=== PATIENT | male | born 1950 | race Caucasian/White ===

== ENCOUNTER 2018-03-01 14:51 | Emergency (ER) | payer MEDICARE ==
[~2018-03-01] VITALS: Ht 175.3 cm; Wt 80.3 kg
--- NOTE | 2018-03-01 14:59 | NUR ---
DAISHA at bedside speaking with pt.
[2018-03-01 15:35] LABS: BASOPHILS % (AUTO) 0.4 % (0.0-2.0); EOSINOPHILS # (AUTO) 0.1 K/uL (0.0-0.7); EOSINOPHILS % (AUTO) 1.4 % (0.0-7.0); HEMATOCRIT 44.1 % (36.7-47.1); HEMOGLOBIN 15.2 g/dL (12.5-16.3); LYMPHOCYTES # (AUTO) 1.5 K/uL (20.0-40.0); LYMPHOCYTES % (AUTO) 19.4 % (20.5-51.5); MEAN CORPUSCULAR HEMOGLOBIN 29.9 uug (23.8-33.4); MEAN CORPUSCULAR HGB CONC 35 g/dL (32.5-36.3); MEAN CORPUSCULAR VOLUME 86.8 fL (73.0-96.2); MONOCYTES # (AUTO) 0.6 K/uL (2.0-10.0); MONOCYTES % (AUTO) 8.3 % (0.0-11.0); NEUTROPHILS # (AUTO) 5.5 K/uL (1.8-8.9); NEUTROPHILS % (AUTO) 70.5 % (38.5-71.5); PLATELET COUNT (AUTO) 202 K/uL (152-348); RED BLOOD CELL COUNT(AUTO) 5.08 MIL/uL (4.06-5.63); WHITE BLOOD COUNT (AUTO) 7.8 K/uL (3.6-10.2)
[2018-03-01 15:42] LABS: CARBON DIOXIDE 31 mmol/L (21-32); CHLORIDE 105 mmol/L (98-107); CREATININE 0.8 mg/dL (0.6-1.3); GLUCOSE 108 mg/dL (74-106); POTASSIUM 4.3 mmol/L (3.5-5.1); UREA NITROGEN, BLOOD 14 mg/dL (7-18)
[2018-03-01 15:47] LABS: ALANINE AMINOTRANSFERASE 12 U/L (16-63); ALKALINE PHOSPHATASE 68 U/L (50-136); ASPARTATE AMINOTRANSFERASE 20 U/L (15-37); BILIRUBIN,DIRECT 0.1 mg/dL (0.0-0.2); BILIRUBIN,TOTAL 0.4 mg/dL (0.2-1.0); TOTAL PROTEIN, SERUM 6.6 g/dL (6.4-8.2)
[2018-03-01 15:48] LABS: ACETAMINOPHEN < 2.0 ug/mL (10-30)
[2018-03-01 15:54] LABS: ETHANOL < 3 MG/DL (0-0)
[2018-03-01] MEDS ORDERED: FURO-152 PO (15:55)
[2018-03-01] MEDS ORDERED: SILD100T PO (15:55)
[2018-03-01] MEDS ORDERED: [UNRECOGNIZED DRUG - CODE] TP (15:55)
[2018-03-01] MEDS ORDERED: TROL35.4 TP (15:55)
[2018-03-01] MEDS ORDERED: SERT50TA PO (15:55)
[2018-03-01] MEDS ORDERED: CELE200C PO (15:55)
[2018-03-01] MEDS ORDERED: ALPR0.5T8 PO (15:55)
[2018-03-01] MEDS ORDERED: RASA1TAB PO (15:55)
[2018-03-01] MEDS ORDERED: PRAM0.253 PO (15:55)
[2018-03-01] MEDS ORDERED: CALC200V NAS (15:55)
[2018-03-01] MEDS ORDERED: TRIH2TAB3 PO (15:55)
[2018-03-01] MEDS ORDERED: ATOR20TA PO (15:55)
[2018-03-01] MEDS ORDERED: CARB-93 PO ×2 (15:55)
[2018-03-01] MEDS ORDERED: CYAN-3 IJ (15:55)
[2018-03-01] MEDS ORDERED: LANS30CA54 PO (15:55)
--- NOTE | 2018-03-01 15:58 | NUR ---
Patient ambulated to bathroom with slow steady gait. Urine specimen was requested from the patient.
[2018-03-01 16:07] LABS: *BILIRUBIN,URIN NEGATIVE (NEGATIVE); *BLOOD, URINE NEGATIVE (NEGATIVE); *CLARITY,URINE CLEAR (CLEAR); *COLOR,URINE YELLOW (YELLOW); *KETONES,URINE NEGATIVE (NEGATIVE); *PROTEIN,URINE NEGATIVE (NEGATIVE); *UROBILINOGEN,URINE 0.2 E.U./dl (NORMAL); LEUKOCYTE ESTERASE ,URINE NEGATIVE (NEGATIVE); NITRITE, URINE NEGATIVE (NEGATIVE); UGLUCOSE NEGATIVE (NEGATIVE)
[2018-03-01 16:15] LABS: SQUAMOUS EPITHELIAL CELL,UR FEW /HPF (NONE SEEN)
[2018-03-01 16:18] LABS: *AMPHETAMINE, URINE NEGATIVE (NEGATIVE); *BARBITURATE, URINE NEGATIVE (NEGATIVE); *CANNABINOID, URINE NEGATIVE (NEGATIVE); *COCCAINE, URINE NEGATIVE (NEGATIVE); *OPIATE, URINE NEGATIVE (NEGATIVE); *PHENCYCLIDINE SCREEN,URINE NEGATIVE (NEGATIVE)
--- NOTE | 2018-03-01 16:53 | NUR ---
Patient is seen walking around and inside ER room1, denies any pains, calm & cooperative, pending disposition@this time
--- NOTE | 2018-03-01 17:45 | NUR ---
Crisis social welfare administrator Bonita is evaluating the patient.
--- NOTE | 2018-03-01 18:18 | NUR ---
IV removed. Catheter intact and site benign. Pressure and 4x4 gauze applied to site. No bleeding noted. Patient discharged to home in stable conditon & slow steady gait. Written and verbal after care instructions given to patient and family. Patient and family verbalized understanding of instructions.
== END 2018-03-01 18:19 | disposition home or self-care (01) ==
LOC: ER 14:51
DX: T50.901A Poisoning by unspecified drugs, medicaments and biological substances, accidental (unintentional), initial encounter (principal); I10 Essential (primary) hypertension; E78.5 Hyperlipidemia, unspecified; K21.9 Gastro-esophageal reflux disease without esophagitis; Z86.73 Personal history of transient ischemic attack (TIA), and cerebral infarction without residual deficits; Z79.899 Other long term (current) drug therapy; Y92.89 Other specified places as the place of occurrence of the external cause
CPT/HCPCS: 36415; 80048; 80076; 80307; 81001; 85025; 93005; 99285; A4663; G0480 ×2; G0481

== ENCOUNTER 2018-04-14 15:21 | Emergency (ER) | payer MEDICARE ==
[~2018-04-14] VITALS: Ht 172.7 cm; Wt 77.1 kg
[~2018-04-14 15:21] MED LIST: ALPR0.5T8 PO; ATOR20TA PO; CALC200V NAS; CARB-93 PO; CELE200C PO; CYAN-3 IJ; FURO-152 PO; LANS30CA54 PO; PRAM0.253 PO; RASA1TAB PO; SERT50TA PO; SILD100T PO; TRIH2TAB3 PO; TROL35.4 TP; [UNRECOGNIZED DRUG - CODE] TP
--- NOTE | 2018-04-14 16:06 | NUR ---
PT WAS EVALUATED BY DR JACOBS. PT WAS D/C TO HOME. D/C INSTRUCTIONS GIVEN TO THE PT.
[2018-04-14 16:09] VITALS: BP 141/82
== END 2018-04-14 16:13 | disposition home or self-care (01) ==
LOC: ER 15:23
DX: K59.00 Constipation, unspecified (principal); I10 Essential (primary) hypertension; E78.5 Hyperlipidemia, unspecified; K21.9 Gastro-esophageal reflux disease without esophagitis; Z86.73 Personal history of transient ischemic attack (TIA), and cerebral infarction without residual deficits; Z79.899 Other long term (current) drug therapy
CPT/HCPCS: A4663

== ENCOUNTER 2020-11-12 23:39 | Inpatient (IN) | payer MEDICARE, BC ==
[~2020-11-12] VITALS: Ht 175.3 cm; Wt 64.4 kg
[~2020-11-12 23:39] MED LIST changes: -TRIH2TAB3 PO; +TRIH2TAB5 PO
[2020-11-13 00:07] LABS: BASOPHILS % (AUTO) 0.7 % (0.0-2.0); EOSINOPHILS # (AUTO) 0.1 K/uL (0.0-0.7); EOSINOPHILS % (AUTO) 2.1 % (0.0-7.0); HEMATOCRIT 47.6 % (36.7-47.1); HEMOGLOBIN 16.1 g/dL (12.5-16.3); LYMPHOCYTES # (AUTO) 2.3 K/uL (20.0-40.0); LYMPHOCYTES % (AUTO) 33.3 % (20.5-51.5); MEAN CORPUSCULAR HEMOGLOBIN 29.1 uug (23.8-33.4); MEAN CORPUSCULAR HGB CONC 34 g/dL (32.5-36.3); MEAN CORPUSCULAR VOLUME 85.8 fL (73.0-96.2); MONOCYTES # (AUTO) 0.5 K/uL (2.0-10.0); MONOCYTES % (AUTO) 6.6 % (0.0-11.0); NEUTROPHILS # (AUTO) 3.9 K/uL (1.8-8.9); NEUTROPHILS % (AUTO) 57.3 % (38.5-71.5); PLATELET COUNT (AUTO) 324 K/uL (152-348); RED BLOOD CELL COUNT(AUTO) 5.55 MIL/uL (4.06-5.63); WHITE BLOOD COUNT (AUTO) 6.8 K/uL (3.6-10.2)
[2020-11-13 00:14] LABS: CARBON DIOXIDE 28 mmol/L (21-32); CHLORIDE 108 mmol/L (98-107); CREATININE 0.8 mg/dL (0.6-1.3); GLUCOSE 101 mg/dL (74-106); POTASSIUM 3.9 mmol/L (3.5-5.1); UREA NITROGEN, BLOOD 27 mg/dL (7-18)
[2020-11-13 00:21] LABS: ALANINE AMINOTRANSFERASE 28 U/L (16-63); ALKALINE PHOSPHATASE 75 U/L (50-136); ASPARTATE AMINOTRANSFERASE 17 U/L (15-37); BILIRUBIN,DIRECT 0.2 mg/dL (0.0-0.2); BILIRUBIN,TOTAL 0.4 mg/dL (0.2-1.0); TOTAL PROTEIN, SERUM 7.2 g/dL (6.4-8.2)
[2020-11-13 00:21] LABS: *BILIRUBIN,URIN NEGATIVE (NEGATIVE); *BLOOD, URINE NEGATIVE (NEGATIVE); *CLARITY,URINE CLEAR (CLEAR); *COLOR,URINE YELLOW (YELLOW); *KETONES,URINE NEGATIVE (NEGATIVE); *UROBILINOGEN,URINE 0.2 E.U./dl (NORMAL); LEUKOCYTE ESTERASE ,URINE NEGATIVE (NEGATIVE); NITRITE, URINE NEGATIVE (NEGATIVE); UGLUCOSE NEGATIVE (NEGATIVE)
[2020-11-13 00:23] LABS: ACETAMINOPHEN < 2.0 ug/mL (10-30)
--- NOTE | 2020-11-13 00:30 | NUR ---
Patient was medically cleared by MD Esqueda.
--- NOTE | 2020-11-13 00:35 | NUR ---
Patient BIB [facility], family stated that patient had an aggressive outburst. Patient has a hx of parkinsons. Notified Crisis team, notified that patient needs 1:1 sitter, no sitter is available at this time. No aggressive behavior at this time. Will continue to monitor.
[2020-11-13 00:42] LABS: ETHANOL < 3 MG/DL (0-0)
--- NOTE | 2020-11-13 01:02 | NUR ---
Notified the crisis team a second time.
--- NOTE | 2020-11-13 01:20 | NUR ---
Notified the crisis team a third time.
--- NOTE | 2020-11-13 01:37 | NUR ---
Notified the crisis team a fourth time.
--- NOTE | 2020-11-13 01:42 | NUR ---
Spoke with Shauna Mcadams RN, Crisis PET keyliner for patients psyc eval.
--- NOTE | 2020-11-13 02:25 | NUR ---
Patient being seen by Shauna Mcadams RN.
--- NOTE | 2020-11-13 02:35 | NUR ---
Patient put on 5150 hold by Shauna Muro RN Crisis team. Will admit patient to GPS in the AM.
[2020-11-13 04:03] LABS: *AMPHETAMINE, URINE NEGATIVE (NEGATIVE); *CANNABINOID, URINE NEGATIVE (NEGATIVE); *COCCAINE, URINE NEGATIVE (NEGATIVE); *OPIATE, URINE NEGATIVE (NEGATIVE); *PHENCYCLIDINE SCREEN,URINE NEGATIVE (NEGATIVE)
[2020-11-13] MEDS ORDERED: HALOPERIDOL LACTATE 5 MG/1 ML VIAL ONE (06:08)
[2020-11-13] MEDS ORDERED: diphenhydrAMINE 50 MG/1 ML VIAL ONE (06:09)
--- NOTE | 2020-11-13 06:11 | NUR ---
Patient became agitated and took off his clothes. Notified the MD of patients behavior.
[2020-11-13] MEDS ORDERED: diphenhydrAMINE 50 MG/1 ML VIAL IM ONE (06:45)
[2020-11-13] MEDS ORDERED: HALOPERIDOL LACTATE 5 MG/1 ML VIAL IM ONE (06:45)
--- NOTE | 2020-11-13 07:10 | NUR ---
recieved pt in bed resting, no sign of distress. ra sat 99%.
--- NOTE | 2020-11-13 09:20 | NUR ---
pt transfered to floor in stable condition. Addendum: 11/13/20 at 0934 by NERI pt awake, very thankfull of the care he recieved here. lucía ovalle went up with the pt.
--- NOTE | 2020-11-13 10:00 | NUR ---
VS taken upon arrival noted: bp 140/76, rr189 p66, t98.8 spo2 100% on RA.
--- NOTE | 2020-11-13 10:00 | NUR ---
Admitted a 70 y.o patient from ED. Per Chika RN at ED, patient became agitated this morning around 6am and he was given medications to calm him down. Patient is sleeping at this time but arousable when called his name and to touch. Alert and oriented x2, able to make simple needs known. Patient asked for water when he woke up but refused breakfast tray then went back to sleep. Breathing is even and non labored. No respiratory distress noted. Skin check done and noted intact. Inventory logged in. No contraband among his possessions. Dr. Amaya notified of arrival. Kept comfortable. Needs attended. Will continue to monitor.
[2020-11-13] MEDS ORDERED: MAGNESIUM HYDROXIDE 30 ML LIQUID UDC PO PRN (10:30)
[2020-11-13] MEDS ORDERED: ACETAMINOPHEN 325 MG TABLET PO PRN (10:30)
[2020-11-13] MEDS ORDERED: MAG HYDROX/AL HYDROX/SIMETH 30 ML LIQUID UDC PO PRN (10:30)
--- NOTE | 2020-11-13 12:54 | NUR ---
Telehealth done with Dr. Marie and provided fax number for documents.
--- NOTE | 2020-11-13 16:01 | NUR ---
Patient transferred to MHU in stable condition.
[2020-11-13] MEDS ORDERED: PRAMIPEXOLE 0.25 MG TABLET PO SCH ×2 (17:00)
[2020-11-13] MEDS ORDERED: CARBIDOPA/LEVODOPA 25-100MG TABLET PO SCH (17:00)
[2020-11-13] MEDS ORDERED: SERTRALINE HCL 50 MG TABLET PO SCH (17:00)
[2020-11-13] MEDS: TRIHEXYPHENIDYL HCL 2 MG TABLET PO SCH (17:18)
[2020-11-13] MEDS: CARBIDOPA/LEVODOPA 25-100MG TABLET PO SCH ×2 (17:19→20:52)
[2020-11-13 18:20] VITALS: BP 107/67
[2020-11-13 20:07] VITALS: BP 107/67
[2020-11-13] MEDS: DOCUSATE SODIUM 100 MG CAPSULE PO SCH (20:51)
[2020-11-13] MEDS: ATORVASTATIN 20 MG TABLET PO SCH (20:52)
[2020-11-13] MEDS: TEMAZEPAM 7.5 MG CAPSULE PO PRN (21:24)
--- NOTE | 2020-11-14 00:16 | NUR ---
Received patient up in a carol chair at the nurses station requesting water. Hydration provided. Patient is alert to name and knows he is in the hospital just unsure of which hospital. Executive Director Of Marketing oriented patient to the environment and situation. Patient calm and cooperative , denied SI and no behavioral issues or aggression noted at this time. Patient was compliant with medication and assisted to bed . Monitoring for safety, bed alarm on.
--- NOTE | 2020-11-14 05:54 | NUR ---
Patient slept 7.30 hours last night. Up a couple of times to use the bathroom. Assistance provided as patients gait is unsteady . Frequent rounding done to promote a safe environment. Patient was calm and polite, but confused. No agitation noted so far. Continuing to monitor.
[2020-11-14 07:20] LABS: BASOPHILS # (AUTO) 0.1 K/uL (0.0-8.0); BASOPHILS % (AUTO) 0.8 % (0.0-2.0); EOSINOPHILS # (AUTO) 0.1 K/uL (0.0-0.7); EOSINOPHILS % (AUTO) 1.4 % (0.0-7.0); HEMOGLOBIN 16.1 g/dL (12.5-16.3); LYMPHOCYTES # (AUTO) 1.4 K/uL (20.0-40.0); LYMPHOCYTES % (AUTO) 19.6 % (20.5-51.5); MEAN CORPUSCULAR HEMOGLOBIN 29.1 uug (23.8-33.4); MEAN CORPUSCULAR HGB CONC 34 g/dL (32.5-36.3); MEAN CORPUSCULAR VOLUME 86.8 fL (73.0-96.2); MONOCYTES # (AUTO) 0.6 K/uL (2.0-10.0); MONOCYTES % (AUTO) 7.7 % (0.0-11.0); NEUTROPHILS % (AUTO) 70.5 % (38.5-71.5); PLATELET COUNT (AUTO) 297 K/uL (152-348); RED BLOOD CELL COUNT(AUTO) 5.54 MIL/uL (4.06-5.63); WHITE BLOOD COUNT (AUTO) 7.1 K/uL (3.6-10.2)
[2020-11-14 07:21] LABS: THYROID STIMULATING HORMONE 2.535 mIU/mL (0.358-3.740)
[2020-11-14 07:30] VITALS: BP 122/77
[2020-11-14 07:48] LABS: CREATININE 1.1 mg/dL (0.6-1.3); MAGNESIUM 2.3 mg/dL (1.8-2.4); PHOSPHOROUS 3.9 mg/dL (2.5-4.9); TOTAL PROTEIN, SERUM 6.5 g/dL (6.4-8.2)
[2020-11-14] MEDS: PRAMIPEXOLE 1 MG TABLET PO SCH ×3 (08:20→17:08)
[2020-11-14] MEDS: LORAZEPAM 0.5 MG TABLET PO PRN (08:20)
[2020-11-14] MEDS: CARBIDOPA/LEVODOPA 25-100MG TABLET PO SCH ×4 (08:20→20:28)
[2020-11-14] MEDS: TRIHEXYPHENIDYL HCL 2 MG TABLET PO SCH ×2 (08:20→17:08)
--- NOTE | 2020-11-14 13:17 | NUR ---
SW Family Contact: LINDA spoke with patient's Alex [place] ([phone]) and discussed treatment and discharge plan. Alex also provided this sw with collateral information.
--- NOTE | 2020-11-14 13:17 | NUR ---
LINDA Initial Discharge Note: Patient currently resides at home [address] [address] lives with his Alex [place] ([phone]) and son Noe ([phone]) and his family. and patient would like to return home upon discharge. LIDNA will continue to work with patient, family, and MD to ensure a safe and proper discharge plan.
--- NOTE | 2020-11-14 13:21 | NUR ---
Firearms Report: Hot Mill Operator completed and submitted a [employer] firearms report for 5150 danger to self certification. A copy of report has been placed in patient chart.
[2020-11-14 15:12] VITALS: BP 110/70
[2020-11-14] MEDS ORDERED: SERTRALINE HCL 50 MG TABLET PO SCH (17:00)
[2020-11-14 20:04] VITALS: BP 108/64
[2020-11-14] MEDS: DOCUSATE SODIUM 100 MG CAPSULE PO SCH (20:28)
[2020-11-14] MEDS: ATORVASTATIN 20 MG TABLET PO SCH (20:28)
[2020-11-14] MEDS: TEMAZEPAM 7.5 MG CAPSULE PO PRN (21:08)
[2020-11-15 07:30] VITALS: BP 107/73
[2020-11-15] MEDS: TRIHEXYPHENIDYL HCL 2 MG TABLET PO SCH ×2 (08:24→16:58)
[2020-11-15] MEDS: PRAMIPEXOLE 1 MG TABLET PO SCH ×3 (08:24→16:57)
[2020-11-15] MEDS: CARBIDOPA/LEVODOPA 25-100MG TABLET PO SCH ×4 (08:25→20:20)
--- NOTE | 2020-11-15 10:22 | NUR ---
LINDA SNF Referral: LINDA faxed patient's referral packet to the following SNF's for review. [place] [facility] Jesse Ricci [phone] [facility]- [facility] [address] [facility], [place] [address] Attention Anastasia Addendum: 11/15/20 at 1148 by SCOTT BURTON Patient is accepted at [facility]. Addendum: 11/15/20 at 1204 by SCOTT BURTON [facility] did not accept patient due to behavior.
[2020-11-15] MEDS: DIVALPROEX SPRINKLE 125 MG CAP.SPRINK PO SCH ×2 (13:14→16:56)
[2020-11-15 15:46] VITALS: BP 112/74
[2020-11-15] MEDS: SERTRALINE HCL 50 MG TABLET PO SCH (16:56)
[2020-11-15] MEDS: DOCUSATE SODIUM 100 MG CAPSULE PO SCH (20:20)
[2020-11-15] MEDS: ATORVASTATIN 20 MG TABLET PO SCH (20:21)
[2020-11-15] MEDS: TEMAZEPAM 7.5 MG CAPSULE PO PRN (20:50)
--- NOTE | 2020-11-15 20:58 | NUR ---
PATIENT RECEIVED IN SLICK CHAIR IN HALLWAY AWAKE. PATIENT DENIES SI. PATIENT COMPLAINT WITH MEDICATION AND ABLE TO MAKE NEEDS KNOWN. NO AGGRESSIVE OR COMBATIVE BEHAVIOR. SAFE ENVIRONMENT PROVIDED, FREQUENT ROUNDING, AND CLUTTER FREE ENVIRONMENT. BED IN LOWEST POSITION, BED LOCKED, AND BED ALARM ON WHILE IN BED.
[2020-11-15 20:59] VITALS: BP 128/75
[2020-11-15] MEDS ORDERED: QUETIAPINE FUMARATE 25 MG TABLET PO SCH (21:00)
[2020-11-16 07:30] VITALS: BP 124/70
[2020-11-16] MEDS: DIVALPROEX SPRINKLE 125 MG CAP.SPRINK PO SCH ×3 (08:14→16:04)
[2020-11-16] MEDS: PRAMIPEXOLE 1 MG TABLET PO SCH ×3 (08:15→16:04)
[2020-11-16] MEDS: TRIHEXYPHENIDYL HCL 2 MG TABLET PO SCH ×2 (08:15→16:03)
[2020-11-16] MEDS: CARBIDOPA/LEVODOPA 25-100MG TABLET PO SCH ×4 (08:15→20:07)
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
[2020-11-16] MEDS: SERTRALINE HCL 50 MG TABLET PO SCH (16:03)
[2020-11-16 16:42] VITALS: BP 102/66
[2020-11-16] MEDS ORDERED: CARBIDOPA/LEVODOPA 25-100MG TABLET PO SCH (17:00)
[2020-11-16] MEDS: QUETIAPINE FUMARATE 25 MG TABLET PO SCH (20:06)
[2020-11-16] MEDS: ATORVASTATIN 20 MG TABLET PO SCH (20:06)
[2020-11-16] MEDS: DOCUSATE SODIUM 100 MG CAPSULE PO SCH (20:06)
[2020-11-16 20:08] VITALS: BP 101/56
--- NOTE | 2020-11-16 21:24 | NUR ---
Received pt sitting in the carol chair. No acute distress noted. Ambulates in the hallway using walker independently. Denies SI. Due meds given as ordered, tolerated well. Safely back in bed. Safety measures maintained. Will continue to monitor.
[2020-11-17 07:30] VITALS: BP 125/56
[2020-11-17] MEDS: TRIHEXYPHENIDYL HCL 2 MG TABLET PO SCH ×2 (08:19→16:35)
[2020-11-17] MEDS: PRAMIPEXOLE 1 MG TABLET PO SCH ×3 (08:19→16:35)
[2020-11-17] MEDS: DIVALPROEX SPRINKLE 125 MG CAP.SPRINK PO SCH ×2 (08:19→16:35)
[2020-11-17] MEDS: CARBIDOPA/LEVODOPA 25-100MG TABLET PO SCH ×4 (08:21→20:22)
--- NOTE | 2020-11-17 12:50 | NUR ---
PC Hearing: Patient's court hearing was held today and patient was upheld for danger to self and GD.
--- NOTE | 2020-11-17 14:08 | NUR ---
Gps/offset duplicating machine operator- Interacts when engaged. Making his needs known, ambulates w/ assist, using FWW,. denies any discomfort, reviewed safety .
--- NOTE | 2020-11-17 15:23 | NUR ---
Individual Counseling: industrial workers met with patient for brief counseling to help address patients presenting problem suicidal ideation. SW assessed patient's level of suicidality. Patient denies current suicidal ideation. Patient presented with euthymic mood and appears to have a brighter affect. Patient is able to have a meaningful conversation and express his current needs. SW will continue to be available for the patient and provide ongoing support.
[2020-11-17 15:52] VITALS: BP 99/59
[2020-11-17] MEDS: SERTRALINE HCL 50 MG TABLET PO SCH (16:35)
[2020-11-17 20:11] VITALS: BP 97/53
[2020-11-17] MEDS: DOCUSATE SODIUM 100 MG CAPSULE PO SCH (20:21)
[2020-11-17] MEDS: ATORVASTATIN 20 MG TABLET PO SCH (20:21)
[2020-11-17] MEDS: QUETIAPINE FUMARATE 25 MG TABLET PO SCH (20:21)
--- NOTE | 2020-11-18 06:23 | NUR ---
PATIENT SLEPT FOR APPROX. 6.30 HRS THROUGH THE NIGHT. HE IS NOTED CALM AND PLEASANT. WILL CONTINUE TO MONITOR.
--- NOTE | 2020-11-18 06:24 | NUR ---
PATIENT SLEPT FOR APPROX. 7.15 HRS THROUGH THE NIGHT. HE CONTINUE PLEASANT AND COOPERATIVE. WILL CONTINUE TO MONITOR.
[2020-11-18 07:30] VITALS: BP 113/62
[2020-11-18 07:42] LABS: BASOPHILS % (AUTO) 0.4 % (0.0-2.0); EOSINOPHILS # (AUTO) 0.1 K/uL (0.0-0.7); EOSINOPHILS % (AUTO) 1.5 % (0.0-7.0); HEMATOCRIT 38.2 % (36.7-47.1); HEMOGLOBIN 13.3 g/dL (12.5-16.3); LYMPHOCYTES # (AUTO) 1.5 K/uL (20.0-40.0); LYMPHOCYTES % (AUTO) 21.1 % (20.5-51.5); MEAN CORPUSCULAR HGB CONC 35 g/dL (32.5-36.3); MEAN CORPUSCULAR VOLUME 85.9 fL (73.0-96.2); MONOCYTES # (AUTO) 0.8 K/uL (2.0-10.0); MONOCYTES % (AUTO) 11.1 % (0.0-11.0); NEUTROPHILS # (AUTO) 4.7 K/uL (1.8-8.9); NEUTROPHILS % (AUTO) 65.9 % (38.5-71.5); PLATELET COUNT (AUTO) 223 K/uL (152-348); RED BLOOD CELL COUNT(AUTO) 4.45 MIL/uL (4.06-5.63); WHITE BLOOD COUNT (AUTO) 7.1 K/uL (3.6-10.2)
[2020-11-18 07:46] LABS: MAGNESIUM 1.9 mg/dL (1.8-2.4); PHOSPHOROUS 2.8 mg/dL (2.5-4.9); POTASSIUM 4.2 mmol/L (3.5-5.1)
[2020-11-18] MEDS: TRIHEXYPHENIDYL HCL 2 MG TABLET PO SCH ×2 (08:11→16:07)
[2020-11-18] MEDS: DIVALPROEX SPRINKLE 125 MG CAP.SPRINK PO SCH ×2 (08:11→16:07)
[2020-11-18] MEDS: PRAMIPEXOLE 1 MG TABLET PO SCH ×3 (08:12→16:07)
[2020-11-18] MEDS: CARBIDOPA/LEVODOPA 25-100MG TABLET PO SCH ×4 (08:12→20:04)
[2020-11-18 14:53] VITALS: BP 95/52
[2020-11-18] MEDS: SERTRALINE HCL 50 MG TABLET PO SCH (16:07)
[2020-11-18] MEDS: DOCUSATE SODIUM 100 MG CAPSULE PO SCH (20:02)
[2020-11-18] MEDS: ATORVASTATIN 20 MG TABLET PO SCH (20:03)
[2020-11-18] MEDS: QUETIAPINE FUMARATE 25 MG TABLET PO SCH (20:03)
[2020-11-18 20:05] VITALS: BP 118/65
[2020-11-18] MEDS: LORAZEPAM 0.5 MG TABLET PO PRN (20:29)
--- NOTE | 2020-11-19 07:04 | NUR ---
Received Pt in bed awake, A+Ox3, calm and pleasant upon approach. Denies SI, and verbally contracts for safety. Denies AH/VH. Compliant with medications, no aggressive or combative behaviors. Unsteady gait noted, falls prevention education reinforced, FWW left at bedside. Bed alarm on while sleeping. Denied pain, VS stable.
[2020-11-19 07:30] VITALS: BP 110/60
[2020-11-19] MEDS: CARBIDOPA/LEVODOPA 25-100MG TABLET PO SCH ×4 (08:14→20:04)
[2020-11-19] MEDS: PRAMIPEXOLE 1 MG TABLET PO SCH ×3 (08:14→16:03)
[2020-11-19] MEDS: DIVALPROEX SPRINKLE 125 MG CAP.SPRINK PO SCH ×2 (08:14→16:03)
[2020-11-19] MEDS: TRIHEXYPHENIDYL HCL 2 MG TABLET PO SCH ×2 (08:14→16:03)
[2020-11-19 15:20] VITALS: BP 109/67
[2020-11-19] MEDS: SERTRALINE HCL 50 MG TABLET PO SCH (16:03)
[2020-11-19 19:58] VITALS: BP 96/53
[2020-11-19] MEDS: QUETIAPINE FUMARATE 25 MG TABLET PO SCH (20:04)
[2020-11-19] MEDS: DOCUSATE SODIUM 100 MG CAPSULE PO SCH (20:04)
[2020-11-19] MEDS: ATORVASTATIN 20 MG TABLET PO SCH (20:04)
[2020-11-20 07:09] LABS: BASOPHILS % (AUTO) 0.9 % (0.0-2.0); EOSINOPHILS # (AUTO) 0.1 K/uL (0.0-0.7); EOSINOPHILS % (AUTO) 2.1 % (0.0-7.0); HEMATOCRIT 39.3 % (36.7-47.1); HEMOGLOBIN 13.5 g/dL (12.5-16.3); LYMPHOCYTES # (AUTO) 1.8 K/uL (20.0-40.0); LYMPHOCYTES % (AUTO) 33.6 % (20.5-51.5); MEAN CORPUSCULAR HEMOGLOBIN 29.3 uug (23.8-33.4); MEAN CORPUSCULAR HGB CONC 34 g/dL (32.5-36.3); MEAN CORPUSCULAR VOLUME 85.5 fL (73.0-96.2); MONOCYTES # (AUTO) 0.5 K/uL (2.0-10.0); MONOCYTES % (AUTO) 9.6 % (0.0-11.0); NEUTROPHILS # (AUTO) 2.8 K/uL (1.8-8.9); NEUTROPHILS % (AUTO) 53.8 % (38.5-71.5); PLATELET COUNT (AUTO) 218 K/uL (152-348); WHITE BLOOD COUNT (AUTO) 5.2 K/uL (3.6-10.2)
[2020-11-20 07:30] VITALS: BP 100/63
[2020-11-20 07:31] LABS: BILIRUBIN,TOTAL 0.4 mg/dL (0.2-1.0); CREATININE 0.9 mg/dL (0.6-1.3); POTASSIUM 4.3 mmol/L (3.5-5.1)
[2020-11-20] MEDS: PRAMIPEXOLE 1 MG TABLET PO SCH ×3 (08:00→17:04)
[2020-11-20] MEDS: DIVALPROEX SPRINKLE 125 MG CAP.SPRINK PO SCH ×2 (08:00→17:04)
[2020-11-20] MEDS: TRIHEXYPHENIDYL HCL 2 MG TABLET PO SCH ×2 (08:00→17:04)
[2020-11-20] MEDS: CARBIDOPA/LEVODOPA 25-100MG TABLET PO SCH ×4 (08:00→20:18)
[2020-11-20 16:00] VITALS: BP 116/64
[2020-11-20] MEDS: SERTRALINE HCL 50 MG TABLET PO SCH (17:04)
[2020-11-20 20:13] VITALS: BP 110/56
[2020-11-20] MEDS: QUETIAPINE FUMARATE 25 MG TABLET PO SCH (20:18)
[2020-11-20] MEDS: DOCUSATE SODIUM 100 MG CAPSULE PO SCH (20:18)
[2020-11-20] MEDS: ATORVASTATIN 20 MG TABLET PO SCH (20:27)
--- NOTE | 2020-11-20 23:00 | NUR ---
RECEIVED PATIENT IN BED AWAKE.CALM AND COOPERATIVE WITH STAFF FOR HIS CARE.AMBULATES WITH FWW. HE IS MEDICATION COMPLIANT.DENIES SI,ANDRE. SAFETY PRECAUTIONS IN PLACE. WILL CONTINUE TO MONITOR.
--- NOTE | 2020-11-21 06:28 | NUR ---
HE SLEPT FOR 07:30 HOURS. UP THIS MORNING AND HAS HAD A SHOWER.
[2020-11-21 07:30] VITALS: BP 107/45
[2020-11-21] MEDS: PRAMIPEXOLE 1 MG TABLET PO SCH ×3 (08:50→17:02)
[2020-11-21] MEDS: CARBIDOPA/LEVODOPA 25-100MG TABLET PO SCH ×4 (08:50→20:33)
[2020-11-21] MEDS: TRIHEXYPHENIDYL HCL 2 MG TABLET PO SCH ×2 (08:50→17:02)
[2020-11-21] MEDS: DIVALPROEX SPRINKLE 125 MG CAP.SPRINK PO SCH ×2 (08:50→17:02)
[2020-11-21] MEDS: SERTRALINE HCL 50 MG TABLET PO SCH (17:03)
[2020-11-21] MEDS: ATORVASTATIN 20 MG TABLET PO SCH (20:34)
[2020-11-21] MEDS: DOCUSATE SODIUM 100 MG CAPSULE PO SCH (20:34)
[2020-11-21] MEDS: QUETIAPINE FUMARATE 25 MG TABLET PO SCH (20:34)
[2020-11-21 20:38] VITALS: BP 101/62
--- NOTE | 2020-11-21 20:48 | NUR ---
PATIENT RECEIVED WALKING WITH FWW IN HALLWAY. PATIENT DENIES SI. PATIENT COMPLAINT WITH MEDICATION AND ABLE TO MAKE NEEDS KNOWN. NO AGGRESSIVE OR COMBATIVE BEHAVIOR. SAFE ENVIRONMENT PROVIDED, FREQUENT ROUDNIG, AND CLUTTER FREE ENVIRONMENT. BED IN LOWEST POSITION, BED LOCKED, AND BED ALARM ON WHILE IN BED.
[2020-11-21] MEDS: TEMAZEPAM 7.5 MG CAPSULE PO PRN (21:48)
[2020-11-22 07:30] VITALS: BP 98/64
--- NOTE | 2020-11-22 07:30 | NUR ---
Received patient AOx2-3, patient sitting in carol chair, able to walk around with FWW, unsteady due to his Disability, patient is pleasant to talk with, no sign of distress on monitoring for safety, compliant with medication assisted with ADLs
[2020-11-22] MEDS: DIVALPROEX SPRINKLE 125 MG CAP.SPRINK PO SCH ×3 (08:08→16:18)
[2020-11-22] MEDS: PRAMIPEXOLE 1 MG TABLET PO SCH ×3 (08:08→16:19)
[2020-11-22] MEDS: CARBIDOPA/LEVODOPA 25-100MG TABLET PO SCH ×4 (08:09→20:15)
[2020-11-22] MEDS: TRIHEXYPHENIDYL HCL 2 MG TABLET PO SCH ×2 (08:11→16:18)
[2020-11-22] MEDS: QUETIAPINE FUMARATE 25 MG TABLET PO SCH (09:54)
[2020-11-22 16:43] VITALS: BP 97/55
--- NOTE | 2020-11-22 19:06 | NUR ---
PATIENT SEEN WALKING AROUND THE HALLWAY WITH HIS FWW, PATIENT DENIES SI AND HI, NO SIGN OF DISTRESS
[2020-11-22 20:13] VITALS: BP 100/61
[2020-11-22] MEDS: ATORVASTATIN 20 MG TABLET PO SCH (20:15)
[2020-11-22] MEDS: DOCUSATE SODIUM 100 MG CAPSULE PO SCH (20:15)
[2020-11-22] MEDS ORDERED: QUETIAPINE FUMARATE 25 MG TABLET PO SCH (21:00)
[2020-11-22] MEDS: TEMAZEPAM 7.5 MG CAPSULE PO PRN (23:00)
[2020-11-23 07:30] VITALS: BP 113/54
--- NOTE | 2020-11-23 07:30 | NUR ---
Received pt ambulating in hallway with FWW. Alert, calm upon approach, able to verbalize needs. Compliant with care. Denies SI/HI, able to verbally CFS. No acute distress, no complaints at this time. Fall precautions, safety measures, clutter free environment ensured. Will continue to monitor.
[2020-11-23] MEDS: DIVALPROEX SPRINKLE 125 MG CAP.SPRINK PO SCH ×3 (08:20→16:32)
[2020-11-23] MEDS: PRAMIPEXOLE 1 MG TABLET PO SCH ×3 (08:20→16:31)
[2020-11-23] MEDS: TRIHEXYPHENIDYL HCL 2 MG TABLET PO SCH ×2 (08:20→16:31)
[2020-11-23] MEDS: QUETIAPINE FUMARATE 25 MG TABLET PO SCH (08:20)
[2020-11-23] MEDS: CARBIDOPA/LEVODOPA 25-100MG TABLET PO SCH ×4 (08:20→20:38)
[2020-11-23 16:00] VITALS: BP 117/46
--- NOTE | 2020-11-23 18:26 | NUR ---
EOSS: Pt ambulating in hallway with FWW, calm, pleasant, able to verbalize needs throughout shift. No acute distress, no complaints. Continues to deny SI/HI. All due medications administered per order, pt compliant, no a/r noted. CFS. Safety measures and frequent rounding implemented. Will endorse care to night clerk.
[2020-11-23 20:14] VITALS: BP 95/53
[2020-11-23] MEDS: ATORVASTATIN 20 MG TABLET PO SCH (20:38)
[2020-11-23] MEDS: DOCUSATE SODIUM 100 MG CAPSULE PO SCH (20:38)
[2020-11-23] MEDS ORDERED: QUETIAPINE FUMARATE 25 MG TABLET PO SCH (21:00)
[2020-11-24 06:19] LABS: BASOPHILS % (AUTO) 0.5 % (0.0-2.0); EOSINOPHILS # (AUTO) 0.2 K/uL (0.0-0.7); EOSINOPHILS % (AUTO) 2.9 % (0.0-7.0); HEMOGLOBIN 14.5 g/dL (12.5-16.3); LYMPHOCYTES # (AUTO) 1.7 K/uL (20.0-40.0); LYMPHOCYTES % (AUTO) 26.7 % (20.5-51.5); MEAN CORPUSCULAR HEMOGLOBIN 29.2 uug (23.8-33.4); MEAN CORPUSCULAR HGB CONC 34 g/dL (32.5-36.3); MEAN CORPUSCULAR VOLUME 86.4 fL (73.0-96.2); MONOCYTES # (AUTO) 0.4 K/uL (2.0-10.0); MONOCYTES % (AUTO) 6.8 % (0.0-11.0); NEUTROPHILS # (AUTO) 3.9 K/uL (1.8-8.9); NEUTROPHILS % (AUTO) 63.1 % (38.5-71.5); PLATELET COUNT (AUTO) 214 K/uL (152-348); RED BLOOD CELL COUNT(AUTO) 4.98 MIL/uL (4.06-5.63); WHITE BLOOD COUNT (AUTO) 6.2 K/uL (3.6-10.2)
[2020-11-24 06:39] LABS: BILIRUBIN,TOTAL 0.3 mg/dL (0.2-1.0); CREATININE 0.9 mg/dL (0.6-1.3); POTASSIUM 4.6 mmol/L (3.5-5.1); TOTAL PROTEIN, SERUM 6.3 g/dL (6.4-8.2)
[2020-11-24 07:30] VITALS: BP 104/57
[2020-11-24] MEDS: QUETIAPINE FUMARATE 25 MG TABLET PO SCH (08:26)
[2020-11-24] MEDS: DIVALPROEX SPRINKLE 125 MG CAP.SPRINK PO SCH ×2 (08:27→12:01)
[2020-11-24] MEDS: CARBIDOPA/LEVODOPA 25-100MG TABLET PO SCH ×2 (08:27→12:01)
[2020-11-24] MEDS: TRIHEXYPHENIDYL HCL 2 MG TABLET PO SCH (08:27)
[2020-11-24] MEDS: PRAMIPEXOLE 1 MG TABLET PO SCH ×2 (08:27→12:01)
--- NOTE | 2020-11-24 08:55 | NUR ---
Discharge Note: Patient will be discharged back to [facility], [facility] [address] [place] [address] ([phone]) via ambulance. Patient will be transported by ambulance at 1pm. Spoke with Anastasia digital traffic coordinator at the facility who states they are ready to accept the patient today. Patient will follow-up at the facility with Dr. Dowling Service Developer and Dr. Marie Psychiatrist. Patient is alert and oriented times 4, denies suicidal or homicidal ideation, and is aware and agreeable with discharge plans. Patient presents with euthymic mood and congruent affect. Patient is unable to plan for self-care at this time, however, is willing to accept care provided at the facility. Patients Alex ([phone]) is aware and agreeable with discharge plans.
--- NOTE | 2020-11-24 13:44 | NUR ---
LINDA Note: This SW faxed patient's covid results to admin Anastasia ([phone]) from [facility].
--- NOTE | 2020-11-24 13:51 | NUR ---
PATIENT WAS DISCHARGE TO [facility], GAVE REPORT TO SONI, PATIENT WAS PLEASANT , SIGNED BELONGING AND DISCHARGE INSTRUCTION, WAS TRANSPORTED VIA AMBULANCE WITH 2 EMT , DENIES SI AND HI, NO SIGN OF DISTRESS, MD AWARE
== END 2020-11-24 13:53 | DRG 885 ==
LOC: ER 23:43 → MEDSURG3 11-13 09:17 → UNDOADMIN 11-13 09:17 → GPSOV3 11-13 09:18 → MEDSURG3 11-13 10:55 → GPS 11-13 16:14
PROVIDERS: ADMIT Psychiatry & Neurology Psychosomatic Medicine; ATTEND Internal Medicine
DX: F31.89 Other bipolar disorder (principal); F01.50 Vascular dementia, unspecified severity, without behavioral disturbance, psychotic disturbance, mood disturbance, and anxiety; R45.851 Suicidal ideations; D68.69 Other thrombophilia; F02.80 Dementia in other diseases classified elsewhere, unspecified severity, without behavioral disturbance, psychotic disturbance, mood disturbance, and anxiety; G20 Parkinson's disease; M53.0 Cervicocranial syndrome; Z79.899 Other long term (current) drug therapy; G89.29 Other chronic pain; M19.90 Unspecified osteoarthritis, unspecified site; Z20.822 Contact with and (suspected) exposure to COVID-19; Z74.09 Other reduced mobility; K21.9 Gastro-esophageal reflux disease without esophagitis; F60.9 Personality disorder, unspecified; I83.90 Asymptomatic varicose veins of unspecified lower extremity; R53.1 Weakness
CPT/HCPCS: 36415; 70450; 80164; 82652; 83735; 84100; 84443; 85025; 93005; G0480; J1200; J1630

== ENCOUNTER 2023-07-30 22:46 | Inpatient (IN) | payer MEDICARE, BC ==
[~2023-07-30] VITALS: Ht 167.6 cm; Wt 55.3 kg
[~2023-07-30 22:46] MED LIST changes: -ALPR0.5T8 PO; -CALC200V NAS; +CARB-300 PO; -CELE200C PO; -CYAN-3 IJ; -FURO-152 PO; -LANS30CA54 PO; -RASA1TAB PO; -SERT50TA PO; -SILD100T PO; -TROL35.4 TP; -[UNRECOGNIZED DRUG - CODE] TP
[2023-07-30] MEDS ORDERED: IV NORMAL SALINE 1000 ML BAG IV ONE (23:30)
[2023-07-30 23:57] LABS: BASOPHILS # (AUTO) 0.2 K/UL (0.0-0.2); BASOPHILS % (AUTO) 1.7 % (0.0-2.0); EOSINOPHILS # (AUTO) 0.6 K/uL (0.0-0.7); EOSINOPHILS % (AUTO) 5.8 % (0.0-7.0); HEMATOCRIT 37.2 % (36.7-47.1); LYMPHOCYTES # (AUTO) 0.6 K/uL (0.8-4.8); LYMPHOCYTES % (AUTO) 6.1 % (20.5-51.5); MEAN CORPUSCULAR HEMOGLOBIN 25.5 uug (23.8-33.4); MEAN CORPUSCULAR HGB CONC 32 g/dL (32.5-36.3); MEAN CORPUSCULAR VOLUME 78.7 fL (73.0-96.2); MONOCYTES # (AUTO) 0.6 K/uL (0.1-1.30); MONOCYTES % (AUTO) 6.2 % (0.0-11.0); NEUTROPHILS # (AUTO) 7.7 K/uL (1.8-8.9); NEUTROPHILS % (AUTO) 80.2 % (38.5-71.5); PLATELET COUNT (AUTO) 373 K/uL (152-348); RED BLOOD CELL COUNT(AUTO) 4.72 MIL/uL (4.06-5.63); WHITE BLOOD COUNT (AUTO) 9.6 K/uL (3.6-10.2)
[2023-07-31] LABS: DIFFERENTIAL COMMENT 1
[2023-07-31 00:07] LABS: CALCIUM 8.4 mg/dL (8.5-10.1); CARBON DIOXIDE 27 mmol/L (21-32); CHLORIDE 100 mmol/L (98-107); CREATININE 0.8 mg/dL (0.6-1.3); GLUCOSE 107 mg/dL (74-106); POTASSIUM 4.6 mmol/L (3.5-5.1); SODIUM SERUM 136 mmol/L (136-145); UREA NITROGEN, BLOOD 17 mg/dL (7-18)
[2023-07-31 00:09] LABS: AMMONIA < 10 umol/L (11-32)
[2023-07-31 00:16] LABS: ALANINE AMINOTRANSFERASE 7 U/L (16-63); ALBUMIN 2.9 g/dL (3.4-5.0); ALKALINE PHOSPHATASE 80 U/L (50-136); ASPARTATE AMINOTRANSFERASE 14 U/L (15-37); BILIRUBIN,DIRECT 0.1 mg/dL (0.0-0.2); BILIRUBIN,TOTAL 0.3 mg/dL (0.2-1.0); TOTAL PROTEIN, SERUM 6.5 g/dL (6.4-8.2)
[2023-07-31] MEDS ORDERED: IV NS 1000 ML 1,000 ML IV ONE ×2 (00:45→02:15)
[2023-07-31] MEDS ORDERED: DIVA125T2 (01:05)
[2023-07-31] MEDS ORDERED: COD28PAS (01:05)
[2023-07-31] MEDS ORDERED: PANT20TA2 (01:05)
[2023-07-31] MEDS ORDERED: LEVO50CA4 (01:05)
[2023-07-31] MEDS ORDERED: ASPI-1420 (01:05)
[2023-07-31] MEDS ORDERED: TAMS-3 (01:05)
[2023-07-31] MEDS ORDERED: SODI1TAB3 (01:05)
[2023-07-31] MEDS ORDERED: QUET400T (01:05)
[2023-07-31] MEDS ORDERED: DIVA250T4 (01:05)
[2023-07-31] MEDS ORDERED: SENN-261 (01:05)
[2023-07-31] MEDS ORDERED: RISP2TAB5 (01:05)
[2023-07-31] MEDS ORDERED: QUET100T (01:05)
[2023-07-31 02:10] LABS: *BILIRUBIN,URIN NEGATIVE (NEGATIVE); *BLOOD, URINE NEGATIVE (NEGATIVE); *CLARITY,URINE CLEAR (CLEAR); *COLOR,URINE YELLOW (YELLOW); *KETONES,URINE NEGATIVE (NEGATIVE); *PROTEIN,URINE 2+ (NEGATIVE); *UROBILINOGEN,URINE 0.2 E.U./dl (NORMAL); LEUKOCYTE ESTERASE ,URINE NEGATIVE (NEGATIVE); NITRITE, URINE NEGATIVE (NEGATIVE); UGLUCOSE NEGATIVE (NEGATIVE)
[2023-07-31 02:11] LABS: BACTERIA,URINE NONE SEEN /HPF (NONE SEEN); SQUAMOUS EPITHELIAL CELL,UR NONE SEEN /HPF (NONE SEEN); WBC,URINE NONE SEEN /HPF (0-3)
[2023-07-31] MEDS ORDERED: MAGNESIUM HYDROXIDE 30 ML LIQUID UDC PO ONE (02:15)
[2023-07-31] MEDS ORDERED: MAGNESIUM HYDROXIDE 30 ML LIQUID UDC ONE (02:19)
[2023-07-31] MEDS ORDERED: MAGNESIUM HYDROXIDE 30 ML LIQUID UDC PO PRN (02:45)
[2023-07-31] MEDS ORDERED: LACTULOSE 20 G/30 ML LIQUID UDC PO ONE (02:45)
[2023-07-31] MEDS ORDERED: ONDANSETRON 4 MG/2 ML VIAL IV PRN (02:45)
[2023-07-31] MEDS ORDERED: REMEDY ESSENTIAL ZINC PASTE 113 GM TP PRN (02:45)
[2023-07-31] MEDS ORDERED: ACETAMINOPHEN 325 MG TABLET PO PRN (02:45)
[2023-07-31 04:10] VITALS: BP 139/64; TEMP 97.7; O2SAT 98
[2023-07-31] MEDS: IV NS 1000 ML 1,000 ML IV PRN ×2 (06:51→21:41)
[2023-07-31] MEDS: LEVOTHYROXINE SODIUM 50 MCG TABLET PO SCH (06:55)
[2023-07-31 08:03] VITALS: BP 126/58; TEMP 97.5; O2SAT 97
[2023-07-31] MEDS: TRIHEXYPHENIDYL HCL 2 MG TABLET PO SCH ×2 (08:43→16:51)
[2023-07-31] MEDS: ASPIRIN EC 81 MG TABLET.DR PO SCH (08:43)
[2023-07-31] MEDS ORDERED: DIVALPROEX 250 MG TABLET.DR PO SCH ×4 (09:00→21:00)
[2023-07-31] MEDS ORDERED: PRAMIPEXOLE 1 MG TABLET PO SCH (09:00)
[2023-07-31] MEDS ORDERED: CARBIDOPA/LEVODOPA 25-100MG TABLET PO SCH ×2 (09:00)
[2023-07-31] MEDS ORDERED: MEDIHONEY= THERAHONEY 1.5 OZ TUBE TOP SCH (11:00)
[2023-07-31] MEDS ORDERED: MAGN400T40 PO (11:30)
[2023-07-31] MEDS ORDERED: CHOL400C8 PO (11:49)
[2023-07-31] MEDS: SODIUM HYPOCHLORITE 0.125% (QUARTER STRENGTH) 473 ML BOTTLE TP SCH (11:54)
[2023-07-31] MEDS ORDERED: CARBIDOPA/LEVODOPA 25-100MG TABLET PO ONE (15:45)
[2023-07-31 16:00] VITALS: BP 125/66; TEMP 98.1; O2SAT 94
[2023-07-31] MEDS ORDERED: MELA1TAB53 PO (16:25)
[2023-07-31] MEDS: PRAMIPEXOLE 1 MG TABLET PO SCH (17:46)
[2023-07-31 20:00] VITALS: BP 114/61; TEMP 98.1; O2SAT 98
[2023-07-31] MEDS: TAMSULOSIN HCL 0.4 MG CAP.SR.24H PO SCH (20:38)
[2023-07-31] MEDS: ATORVASTATIN 20 MG TABLET PO SCH (20:39)
[2023-07-31] MEDS: SENNOSIDES 1 TABLET PO SCH (20:39)
[2023-07-31] MEDS ORDERED: ATORVASTATIN 20 MG TABLET PO SCH (21:00)
[2023-08-01 04:00] VITALS: BP 105/38; TEMP 97.9; O2SAT 98
[2023-08-01] MEDS: LEVOTHYROXINE SODIUM 50 MCG TABLET PO SCH (06:32)
[2023-08-01 07:19] LABS: BASOPHILS # (AUTO) 0.1 K/UL (0.0-0.2); BASOPHILS % (AUTO) 0.8 % (0.0-2.0); EOSINOPHILS % (AUTO) 12.8 % (0.0-7.0); HEMATOCRIT 32.2 % (36.7-47.1); HEMOGLOBIN 10.6 g/dL (12.5-16.3); LYMPHOCYTES # (AUTO) 1.6 K/uL (0.8-4.8); LYMPHOCYTES % (AUTO) 19.9 % (20.5-51.5); MEAN CORPUSCULAR HEMOGLOBIN 26.3 uug (23.8-33.4); MEAN CORPUSCULAR HGB CONC 33 g/dL (32.5-36.3); MEAN CORPUSCULAR VOLUME 80.1 fL (73.0-96.2); MONOCYTES # (AUTO) 0.7 K/uL (0.1-1.30); MONOCYTES % (AUTO) 8.8 % (0.0-11.0); NEUTROPHILS # (AUTO) 4.7 K/uL (1.8-8.9); NEUTROPHILS % (AUTO) 57.7 % (38.5-71.5); PLATELET COUNT (AUTO) 160 K/uL (152-348); RED BLOOD CELL COUNT(AUTO) 4.03 MIL/uL (4.06-5.63); RED CELL DISTRIBUTION WIDTH 18.3 % (12.1-16.2); WHITE BLOOD COUNT (AUTO) 8.1 K/uL (3.6-10.2)
[2023-08-01 07:29] LABS: DIFFERENTIAL COMMENT 1
[2023-08-01 07:35] LABS: CALCIUM 8.2 mg/dL (8.5-10.1); CARBON DIOXIDE 23 mmol/L (21-32); CHLORIDE 105 mmol/L (98-107); CREATININE 0.6 mg/dL (0.6-1.3); GLUCOSE 89 mg/dL (74-106); PHOSPHOROUS 3.7 mg/dL (2.5-4.9); SODIUM SERUM 136 mmol/L (136-145); UREA NITROGEN, BLOOD 13 mg/dL (7-18)
[2023-08-01] MEDS: GLUCERNA SHAKE 237 ML CAN PO SCH (08:59)
[2023-08-01] MEDS: PRAMIPEXOLE 1 MG TABLET PO SCH ×3 (08:59→16:59)
[2023-08-01] MEDS: ASPIRIN EC 81 MG TABLET.DR PO SCH (08:59)
[2023-08-01] MEDS: TRIHEXYPHENIDYL HCL 2 MG TABLET PO SCH (09:01)
[2023-08-01] MEDS: SODIUM HYPOCHLORITE 0.125% (QUARTER STRENGTH) 473 ML BOTTLE TP SCH (09:01)
[2023-08-01] MEDS ORDERED: DIVA125C5 PO ×2 (10:04→10:05)
[2023-08-01 12:00] VITALS: BP 109/62; TEMP 97.1; O2SAT 97
[2023-08-01] MEDS: CARBIDOPA/LEVODOPA 25-100MG TABLET PO SCH ×4 (12:29→20:33)
[2023-08-01 16:00] VITALS: BP 109/58; TEMP 98.6; O2SAT 96
[2023-08-01] MEDS: DIVALPROEX SPRINKLE 125 MG CAP.SPRINK PO SCH ×2 (17:12→20:32)
[2023-08-01] MEDS: IV NS 1000 ML 1,000 ML IV PRN (18:00)
[2023-08-01] MEDS: SENNOSIDES 1 TABLET PO SCH (20:32)
[2023-08-01] MEDS: TAMSULOSIN HCL 0.4 MG CAP.SR.24H PO SCH (20:32)
[2023-08-01] MEDS: ATORVASTATIN 20 MG TABLET PO SCH (20:33)
[2023-08-01] MEDS: MELATONIN 3 MG TABLET PO SCH (20:34)
[2023-08-01 20:40] VITALS: BP 108/70; TEMP 98.2; O2SAT 96
[2023-08-02 04:08] VITALS: BP 132/61; TEMP 98; O2SAT 97
[2023-08-02] MEDS: LEVOTHYROXINE SODIUM 50 MCG TABLET PO SCH (06:08)
[2023-08-02 06:41] LABS: BASOPHILS % (AUTO) 0.5 % (0.0-2.0); EOSINOPHILS # (AUTO) 0.6 K/uL (0.0-0.7); EOSINOPHILS % (AUTO) 7.4 % (0.0-7.0); HEMATOCRIT 32.7 % (36.7-47.1); HEMOGLOBIN 10.8 g/dL (12.5-16.3); LYMPHOCYTES # (AUTO) 1.5 K/uL (0.8-4.8); MEAN CORPUSCULAR HEMOGLOBIN 25.7 uug (23.8-33.4); MEAN CORPUSCULAR HGB CONC 33 g/dL (32.5-36.3); MEAN CORPUSCULAR VOLUME 77.9 fL (73.0-96.2); MONOCYTES # (AUTO) 0.6 K/uL (0.1-1.30); MONOCYTES % (AUTO) 7.1 % (0.0-11.0); NEUTROPHILS # (AUTO) 5.7 K/uL (1.8-8.9); PLATELET COUNT (AUTO) 313 K/uL (152-348); WHITE BLOOD COUNT (AUTO) 8.5 K/uL (3.6-10.2)
[2023-08-02 06:59] LABS: DIFFERENTIAL COMMENT 1
[2023-08-02 07:00] LABS: CALCIUM 7.7 mg/dL (8.5-10.1); CARBON DIOXIDE 27 mmol/L (21-32); CHLORIDE 105 mmol/L (98-107); CREATININE 0.6 mg/dL (0.6-1.3); GLUCOSE 104 mg/dL (74-106); MAGNESIUM 1.8 mg/dL (1.8-2.4); PHOSPHOROUS 3.2 mg/dL (2.5-4.9); POTASSIUM 3.4 mmol/L (3.5-5.1); SODIUM SERUM 139 mmol/L (136-145); UREA NITROGEN, BLOOD 11 mg/dL (7-18)
[2023-08-02] MEDS: DIVALPROEX SPRINKLE 125 MG CAP.SPRINK PO SCH ×3 (08:49→20:24)
[2023-08-02] MEDS: ASPIRIN EC 81 MG TABLET.DR PO SCH (08:50)
[2023-08-02] MEDS: MAGNESIUM OXIDE 400 MG TABLET PO SCH (08:50)
[2023-08-02] MEDS: CARBIDOPA/LEVODOPA 25-100MG TABLET PO SCH ×4 (08:50→20:23)
[2023-08-02] MEDS: CHOLECALCIFEROL 1,000 UNIT TABLET PO SCH (08:50)
[2023-08-02] MEDS: GLUCERNA SHAKE 237 ML CAN PO SCH (08:51)
[2023-08-02] MEDS: PRAMIPEXOLE 1 MG TABLET PO SCH ×3 (08:57→17:34)
[2023-08-02] MEDS ORDERED: HOME MED MISCELLANEOUS PO SCH (09:00)
[2023-08-02] MEDS: SODIUM HYPOCHLORITE 0.125% (QUARTER STRENGTH) 473 ML BOTTLE TP SCH (09:50)
[2023-08-02] MEDS: IV NS 1000 ML 1,000 ML IV PRN (10:16)
[2023-08-02] MEDS ORDERED: POTASSIUM CHLORIDE 20 MEQ TAB.PRT.SR PO ONE (10:30)
[2023-08-02] MEDS ORDERED: POTASSIUM CHLORIDE 20 MEQ POWDER PACKET PO ONE (11:30)
[2023-08-02 11:53] VITALS: BP 111/64; TEMP 97.5; O2SAT 98
[2023-08-02] MEDS ORDERED: MEGESTROL ACETATE 400 MG/10 ML LIQUID UDC PO SCH (15:15)
[2023-08-02 16:00] VITALS: BP 137/79; TEMP 97.7; O2SAT 97
[2023-08-02] MEDS: DRONABINOL 2.5 MG CAPSULE PO SCH (17:45)
[2023-08-02 20:00] VITALS: BP 120/74; TEMP 97.9; O2SAT 98
[2023-08-02] MEDS: SENNOSIDES 1 TABLET PO SCH (20:22)
[2023-08-02] MEDS: ATORVASTATIN 20 MG TABLET PO SCH (20:22)
[2023-08-02] MEDS: TAMSULOSIN HCL 0.4 MG CAP.SR.24H PO SCH (20:23)
[2023-08-02] MEDS: MELATONIN 3 MG TABLET PO SCH (20:25)
[2023-08-02 22:15] VITALS: O2SAT 97
[2023-08-03 05:00] VITALS: BP 127/68; TEMP 98.3; O2SAT 96
[2023-08-03] MEDS: LEVOTHYROXINE SODIUM 50 MCG TABLET PO SCH (06:46)
[2023-08-03 07:19] LABS: BASOPHILS % (AUTO) 0.2 % (0.0-2.0); EOSINOPHILS # (AUTO) 0.2 K/uL (0.0-0.7); EOSINOPHILS % (AUTO) 1.9 % (0.0-7.0); HEMATOCRIT 33.3 % (36.7-47.1); LYMPHOCYTES # (AUTO) 1.2 K/uL (0.8-4.8); LYMPHOCYTES % (AUTO) 11.3 % (20.5-51.5); MEAN CORPUSCULAR HEMOGLOBIN 25.7 uug (23.8-33.4); MEAN CORPUSCULAR HGB CONC 33 g/dL (32.5-36.3); MEAN CORPUSCULAR VOLUME 77.8 fL (73.0-96.2); MONOCYTES # (AUTO) 0.6 K/uL (0.1-1.30); NEUTROPHILS # (AUTO) 8.4 K/uL (1.8-8.9); NEUTROPHILS % (AUTO) 80.6 % (38.5-71.5); PLATELET COUNT (AUTO) 384 K/uL (152-348); RED BLOOD CELL COUNT(AUTO) 4.29 MIL/uL (4.06-5.63); RED CELL DISTRIBUTION WIDTH 17.6 % (12.1-16.2); WHITE BLOOD COUNT (AUTO) 10.4 K/uL (3.6-10.2)
[2023-08-03 07:28] LABS: DIFFERENTIAL COMMENT 1
[2023-08-03 07:31] LABS: CALCIUM 8.2 mg/dL (8.5-10.1); CREATININE 0.6 mg/dL (0.6-1.3); MAGNESIUM 1.7 mg/dL (1.8-2.4); POTASSIUM 3.6 mmol/L (3.5-5.1)
[2023-08-03] MEDS: MAGNESIUM OXIDE 400 MG TABLET PO SCH (08:03)
[2023-08-03] MEDS: DRONABINOL 2.5 MG CAPSULE PO SCH (08:03)
[2023-08-03] MEDS: CHOLECALCIFEROL 1,000 UNIT TABLET PO SCH (08:03)
[2023-08-03] MEDS: DIVALPROEX SPRINKLE 125 MG CAP.SPRINK PO SCH ×3 (08:04→20:29)
[2023-08-03] MEDS: CARBIDOPA/LEVODOPA 25-100MG TABLET PO SCH ×4 (08:04→20:29)
[2023-08-03] MEDS: ASPIRIN EC 81 MG TABLET.DR PO SCH (08:04)
[2023-08-03] MEDS: PRAMIPEXOLE 1 MG TABLET PO SCH ×3 (08:04→17:35)
[2023-08-03] MEDS: GLUCERNA SHAKE 237 ML CAN PO SCH (08:05)
[2023-08-03] MEDS: SODIUM HYPOCHLORITE 0.125% (QUARTER STRENGTH) 473 ML BOTTLE TP SCH (08:05)
[2023-08-03] MEDS ORDERED: MAGNESIUM OXIDE 400 MG TABLET PO ONE (10:00)
[2023-08-03 12:00] VITALS: BP 129/81; TEMP 97.8; O2SAT 96
[2023-08-03 15:44] VITALS: BP 106/61; TEMP 98; O2SAT 96
[2023-08-03] MEDS: ATORVASTATIN 20 MG TABLET PO SCH (20:29)
[2023-08-03] MEDS: DOCUSATE SODIUM 100 MG CAPSULE PO SCH (20:29)
[2023-08-03] MEDS: SENNOSIDES 1 TABLET PO SCH (20:29)
[2023-08-03] MEDS: MELATONIN 3 MG TABLET PO SCH (20:29)
[2023-08-03] MEDS: TAMSULOSIN HCL 0.4 MG CAP.SR.24H PO SCH (20:29)
[2023-08-03 21:02] VITALS: O2SAT 96
[2023-08-03 22:32] VITALS: BP 118/65; TEMP 98.2; O2SAT 98
[2023-08-04] VITALS (16 sets, daily range): BP systolic 106–133; BP diastolic 59–123; TEMP 97.6–101.7; O2SAT 98–100
[2023-08-04] MEDS: LEVOTHYROXINE SODIUM 50 MCG TABLET PO SCH (06:06)
[2023-08-04 07:06] LABS: BASOPHILS # (AUTO) 0.1 K/UL (0.0-0.2); BASOPHILS % (AUTO) 0.4 % (0.0-2.0); EOSINOPHILS % (AUTO) 0.1 % (0.0-7.0); HEMATOCRIT 28.3 % (36.7-47.1); HEMOGLOBIN 9.4 g/dL (12.5-16.3); LYMPHOCYTES # (AUTO) 1.6 K/uL (0.8-4.8); LYMPHOCYTES % (AUTO) 7.1 % (20.5-51.5); MEAN CORPUSCULAR HEMOGLOBIN 25.8 uug (23.8-33.4); MEAN CORPUSCULAR HGB CONC 33 g/dL (32.5-36.3); MONOCYTES # (AUTO) 1.3 K/uL (0.1-1.30); MONOCYTES % (AUTO) 5.6 % (0.0-11.0); NEUTROPHILS % (AUTO) 86.8 % (38.5-71.5); PLATELET COUNT (AUTO) 481 K/uL (152-348); RED BLOOD CELL COUNT(AUTO) 3.63 MIL/uL (4.06-5.63); RED CELL DISTRIBUTION WIDTH 17.7 % (12.1-16.2)
[2023-08-04 07:27] LABS: DIFFERENTIAL COMMENT 1
[2023-08-04 07:36] LABS: CALCIUM 8.2 mg/dL (8.5-10.1); CREATININE 0.7 mg/dL (0.6-1.3); MAGNESIUM 2.1 mg/dL (1.8-2.4); PHOSPHOROUS 2.4 mg/dL (2.5-4.9); POTASSIUM 4.6 mmol/L (3.5-5.1)
[2023-08-04] MEDS: DOCUSATE SODIUM 100 MG CAPSULE PO SCH ×2 (09:00→21:00)
[2023-08-04] MEDS: CARBIDOPA/LEVODOPA 25-100MG TABLET PO SCH ×4 (09:00→21:00)
[2023-08-04] MEDS: PRAMIPEXOLE 1 MG TABLET PO SCH ×3 (09:00→17:23)
[2023-08-04] MEDS: GLUCERNA SHAKE 237 ML CAN PO SCH (09:00)
[2023-08-04] MEDS: SODIUM HYPOCHLORITE 0.125% (QUARTER STRENGTH) 473 ML BOTTLE TP SCH (09:00)
[2023-08-04] MEDS: DRONABINOL 2.5 MG CAPSULE PO SCH (09:00)
[2023-08-04] MEDS: ASPIRIN EC 81 MG TABLET.DR PO SCH (09:00)
[2023-08-04] MEDS: CHOLECALCIFEROL 1,000 UNIT TABLET PO SCH (09:00)
[2023-08-04] MEDS: MAGNESIUM OXIDE 400 MG TABLET PO SCH (09:00)
[2023-08-04] MEDS: DIVALPROEX SPRINKLE 125 MG CAP.SPRINK PO SCH ×3 (09:00→21:00)
[2023-08-04 09:13] LABS: HEMATOCRIT 26.5 % (36.7-47.1); HEMOGLOBIN 8.6 g/dL (12.5-16.3)
[2023-08-04] MEDS: PANTOPRAZOLE SODIUM 40 MG VIAL IV SCH ×2 (10:33→22:04)
[2023-08-04] MEDS ORDERED: ACETAMINOPHEN 650 MG SUPP.RECT RC PRN (11:30)
[2023-08-04] MEDS: IV NS 1000 ML 1,000 ML IV PRN (12:13)
[2023-08-04] MEDS ORDERED: MISCELLANEOUS MED XX PRN (12:15)
[2023-08-04] MEDS: PIPERACILLIN SODIUM/TAZOBACTAM 3.375 G in IV DEXTROSE 5% 100 ML IV SCH ×2 (13:29→22:04)
[2023-08-04 15:40] LABS: HEMATOCRIT 24.8 % (36.7-47.1); HEMOGLOBIN 8.2 g/dL (12.5-16.3)
[2023-08-04] MEDS ORDERED: SODIUM PHOSPHATE MM 15 MMOL in IV NORMAL SALINE 250 ML IV ONE (16:00)
[2023-08-04 18:07] LABS: HEMATOCRIT 24.9 % (36.7-47.1); HEMOGLOBIN 8.1 g/dL (12.5-16.3)
[2023-08-04] MEDS: SENNOSIDES 1 TABLET PO SCH (21:00)
[2023-08-04] MEDS: TAMSULOSIN HCL 0.4 MG CAP.SR.24H PO SCH (21:00)
[2023-08-04] MEDS: ATORVASTATIN 20 MG TABLET PO SCH (21:00)
[2023-08-04] MEDS: MELATONIN 3 MG TABLET PO SCH (21:00)
[2023-08-04 23:05] LABS: HEMATOCRIT 22.6 % (36.7-47.1)
[2023-08-04 23:08] LABS: HEMOGLOBIN 7.4 g/dL (12.5-16.3)
[2023-08-05] VITALS (27 sets, daily range): BP systolic 80–135; BP diastolic 51–89; TEMP 97.6–98.9; O2SAT 99–100
[2023-08-05 05:13] LABS: BASOPHILS % (AUTO) 0.2 % (0.0-2.0); EOSINOPHILS # (AUTO) 0.3 K/uL (0.0-0.7); MONOCYTES # (AUTO) 1.1 K/uL (0.1-1.30)
[2023-08-05 05:16] LABS: EOSINOPHILS % (AUTO) 1.3 % (0.0-7.0); HEMATOCRIT 21.4 % (36.7-47.1); LYMPHOCYTES % (AUTO) 4.8 % (20.5-51.5); MEAN CORPUSCULAR HEMOGLOBIN 25.9 uug (23.8-33.4); MEAN CORPUSCULAR HGB CONC 33 g/dL (32.5-36.3); MEAN CORPUSCULAR VOLUME 77.9 fL (73.0-96.2); MONOCYTES % (AUTO) 5.1 % (0.0-11.0); NEUTROPHILS # (AUTO) 18.5 K/uL (1.8-8.9); NEUTROPHILS % (AUTO) 88.6 % (38.5-71.5); PLATELET COUNT (AUTO) 321 K/uL (152-348); RED BLOOD CELL COUNT(AUTO) 2.75 MIL/uL (4.06-5.63); RED CELL DISTRIBUTION WIDTH 17.8 % (12.1-16.2); WHITE BLOOD COUNT (AUTO) 20.9 K/uL (3.6-10.2)
[2023-08-05 05:17] LABS: DIFFERENTIAL COMMENT 1; HEMOGLOBIN 7.1 g/dL (12.5-16.3)
[2023-08-05 05:25] LABS: CALCIUM 7.7 mg/dL (8.5-10.1); CARBON DIOXIDE 27 mmol/L (21-32); CHLORIDE 109 mmol/L (98-107); CREATININE 0.7 mg/dL (0.6-1.3); GLUCOSE 108 mg/dL (74-106); MAGNESIUM 2.1 mg/dL (1.8-2.4); PHOSPHOROUS 3.6 mg/dL (2.5-4.9); POTASSIUM 3.7 mmol/L (3.5-5.1); SODIUM SERUM 144 mmol/L (136-145); UREA NITROGEN, BLOOD 38 mg/dL (7-18)
[2023-08-05] MEDS: PIPERACILLIN SODIUM/TAZOBACTAM 3.375 G in IV DEXTROSE 5% 100 ML IV SCH ×3 (05:33→21:47)
[2023-08-05] MEDS: LEVOTHYROXINE SODIUM 50 MCG TABLET PO SCH (05:33)
[2023-08-05] MEDS: MORPHINE SULFATE 2 MG/1 ML DISP.SYRIN IV PRN ×2 (08:25→17:39)
[2023-08-05] MEDS: PANTOPRAZOLE SODIUM 40 MG VIAL IV SCH ×2 (08:42→21:47)
[2023-08-05] MEDS: DIVALPROEX SPRINKLE 125 MG CAP.SPRINK PO SCH ×3 (08:45→21:47)
[2023-08-05] MEDS: DOCUSATE SODIUM 100 MG CAPSULE PO SCH (08:45)
[2023-08-05] MEDS: MAGNESIUM OXIDE 400 MG TABLET PO SCH (08:45)
[2023-08-05] MEDS: CHOLECALCIFEROL 1,000 UNIT TABLET PO SCH (08:46)
[2023-08-05] MEDS: PRAMIPEXOLE 1 MG TABLET PO SCH ×3 (08:46→17:52)
[2023-08-05] MEDS: CARBIDOPA/LEVODOPA 25-100MG TABLET PO SCH ×4 (08:46→21:46)
[2023-08-05] MEDS: GLUCERNA SHAKE 237 ML CAN PO SCH (08:47)
[2023-08-05] MEDS: DRONABINOL 2.5 MG CAPSULE PO SCH (09:00)
[2023-08-05] MEDS ORDERED: ASPIRIN EC 81 MG TABLET.DR PO SCH (09:00)
[2023-08-05] MEDS: SODIUM HYPOCHLORITE 0.125% (QUARTER STRENGTH) 473 ML BOTTLE TP SCH (09:11)
[2023-08-05] MEDS: IV NS 1000 ML 1,000 ML IV PRN ×2 (10:09→18:22)
[2023-08-05] MEDS: LORAZEPAM 2 MG/1 ML VIAL IV PRN ×2 (13:15→20:08)
[2023-08-05] MEDS: MORPHINE SULFATE 4 MG/1 ML DISP.SYRIN IM PRN (20:08)
[2023-08-05] MEDS ORDERED: DOCUSATE SODIUM 100 MG/10 ML LIQUID UDC NG SCH (21:00)
[2023-08-05] MEDS: TAMSULOSIN HCL 0.4 MG CAP.SR.24H PO SCH (21:46)
[2023-08-05] MEDS: ATORVASTATIN 20 MG TABLET PO SCH (21:46)
[2023-08-05] MEDS: MELATONIN 3 MG TABLET PO SCH (21:46)
[2023-08-05] MEDS: SENNOSIDES 1 TABLET PO SCH (21:46)
[2023-08-06] VITALS (24 sets, daily range): BP systolic 0–126; BP diastolic 0–85; TEMP 97.6–97.9; O2SAT 0–100
[2023-08-06] MEDS: MORPHINE SULFATE 4 MG/1 ML DISP.SYRIN IM PRN ×3 (00:15→09:07)
[2023-08-06] MEDS: IV NS 1000 ML 1,000 ML IV PRN (01:40)
[2023-08-06] MEDS: LORAZEPAM 2 MG/1 ML VIAL IV PRN (03:47)
[2023-08-06] MEDS: PIPERACILLIN SODIUM/TAZOBACTAM 3.375 G in IV DEXTROSE 5% 100 ML IV SCH (04:46)
[2023-08-06 05:07] LABS: BASOPHILS # (AUTO) 0.1 K/UL (0.0-0.2)
[2023-08-06 05:09] LABS: BASOPHILS % (AUTO) 0.3 % (0.0-2.0); EOSINOPHILS # (AUTO) 1.4 K/uL (0.0-0.7); EOSINOPHILS % (AUTO) 7.8 % (0.0-7.0); LYMPHOCYTES % (AUTO) 5.6 % (20.5-51.5); MEAN CORPUSCULAR HEMOGLOBIN 25.8 uug (23.8-33.4); MEAN CORPUSCULAR HGB CONC 33 g/dL (32.5-36.3); MONOCYTES % (AUTO) 5.7 % (0.0-11.0); NEUTROPHILS # (AUTO) 14.7 K/uL (1.8-8.9); NEUTROPHILS % (AUTO) 80.6 % (38.5-71.5); PLATELET COUNT (AUTO) 285 K/uL (152-348); RED CELL DISTRIBUTION WIDTH 17.5 % (12.1-16.2); WHITE BLOOD COUNT (AUTO) 18.2 K/uL (3.6-10.2)
[2023-08-06 05:18] LABS: CALCIUM 7.6 mg/dL (8.5-10.1); CARBON DIOXIDE 24 mmol/L (21-32); CHLORIDE 110 mmol/L (98-107); CREATININE 0.7 mg/dL (0.6-1.3); GLUCOSE 81 mg/dL (74-106); POTASSIUM 3.6 mmol/L (3.5-5.1); SODIUM SERUM 142 mmol/L (136-145); UREA NITROGEN, BLOOD 26 mg/dL (7-18)
[2023-08-06 05:33] LABS: RED BLOOD CELL COUNT(AUTO) 2.32 MIL/uL (4.06-5.63)
[2023-08-06 05:35] LABS: DIFFERENTIAL COMMENT 1; HEMATOCRIT 18.4 % (36.7-47.1)
[2023-08-06] MEDS: LEVOTHYROXINE SODIUM 50 MCG TABLET PO SCH (06:20)
[2023-08-06] MEDS ORDERED: DRONABINOL 2.5 MG CAPSULE PO SCH (09:00)
[2023-08-06] MEDS ORDERED: MORPHINE SULFATE PF IV DRIP 100 MG in IV DEXTROSE 5% 96 ML IV PRN (09:10)
[2023-08-06] MEDS ORDERED: SCOPOLAMINE PATCH 1 MG/72 HRS PATCH TD SCH (16:45)
== END 2023-08-06 23:30 | DRG 871 ==
LOC: ER 22:48 → MEDSURG3 07-31 02:31 → CCU 08-04 10:55
PROVIDERS: ADMIT Student in an Organized Health Care Education/Training Program; ATTEND Nurse Practitioner Acute Care
DX: A41.9 Sepsis, unspecified organism (principal); E43 Unspecified severe protein-calorie malnutrition; J96.01 Acute respiratory failure with hypoxia; J69.0 Pneumonitis due to inhalation of food and vomit; G92.8 Other toxic encephalopathy; R65.21 Severe sepsis with septic shock; J98.11 Atelectasis; D62 Acute posthemorrhagic anemia; K92.2 Gastrointestinal hemorrhage, unspecified; R64 Cachexia; Z68.1 Body mass index [BMI] 19.9 or less, adult; F02.84 Dementia in other diseases classified elsewhere, unspecified severity, with anxiety; F02.83 Dementia in other diseases classified elsewhere, unspecified severity, with mood disturbance; Z51.5 Encounter for palliative care; K56.41 Fecal impaction; E86.0 Dehydration; Z66 Do not resuscitate; E03.9 Hypothyroidism, unspecified; E78.5 Hyperlipidemia, unspecified; E88.09 Other disorders of plasma-protein metabolism, not elsewhere classified; F32.A Depression, unspecified; G20.A1 Parkinson's disease without dyskinesia, without mention of fluctuations; K21.9 Gastro-esophageal reflux disease without esophagitis; M19.90 Unspecified osteoarthritis, unspecified site; F41.9 Anxiety disorder, unspecified; I10 Essential (primary) hypertension; L89.129 Pressure ulcer of left upper back, unspecified stage; L89.119 Pressure ulcer of right upper back, unspecified stage
CPT/HCPCS: 36415; 71045; 74018; 83605; 83735; 84100; 84443; 84484; 85018; 85025; 86850; 86900; 86901; 86920; 87040; 93005; A4663; A6209; A6213; C9113; G0378; J2060; J2270; J2274; J2405; J2543; J3490; J7040; Q0167